=== PATIENT | male | born 1985 | race Caucasian/White ===

== ENCOUNTER 2019-01-23 00:42 | Emergency (ER) | payer MEDICAID ==
[2019-01-23 00:51] VITALS: PULSE 88
[2019-01-23 01:04] VITALS: BP 137/87; RESP 16; TEMP 98.1; O2SAT 96
--- NOTE | 2019-01-23 01:32 | C.PDOC ---
History Of Present Illness 33 year old male presents stating his seasonal allergies have been bad recently these past few days with nasal congestion, runny nose, and scratchy throat. He has been drinking some syrup that he usually takes for it with no relief, he does not know the name of the syrup. Denies fever or other complaints. Time Seen by Provider: 01/23/19 01:06 Chief Complaint (Nursing): ENT Problem History Per: Patient History/Exam Limitations: None Onset/Duration Of Symptoms: Days Current Symptoms Are (Timing): Still Present Past Medical History Reviewed: Historical Data, Nursing Documentation, Vital Signs Vital Signs: Last Vital Signs Temp 98.1 F 01/23/19 01:03 Pulse 88 01/23/19 01:03 Resp 16 01/23/19 01:03 BP 137/87 01/23/19 01:03 Pulse Ox 96 01/23/19 01:03 Primary Care Provider: FAMILY PROVIDER,NO Family History: States: Unknown Family Hx - Social History Hx Alcohol Use: No Hx Substance Use: No Review Of Systems Constitutional: Negative for: Fever, Chills ENT: Positive for: Nose Discharge, Nose Congestion, Other (Scratchy throat) Respiratory: Negative for: Cough Gastrointestinal: Negative for: Nausea, Vomiting Skin: Negative for: Rash Physical Exam - Physical Exam Appears: Non-toxic Skin: Normal Color, Warm, No Rash Head: Atraumatic, Normacephalic Eye(s): bilateral: Normal Inspection Ear(s): Bilateral: Normal Nose: Other (Enlarged nasal turbinates with clear discharge) Oral Mucosa: Moist Throat: Normal (No swelling or injection), No Exudate, Other (Airway patent) Neck: Normal ROM, Supple Respiratory: Normal Breath Sounds, No Accessory Muscle Use, Other (Normal inspiratory effort) Neurological/Psych: Oriented x3, Normal Speech ED Course And Treatment O2 Sat by Pulse Oximetry: 96 (Room air) Pulse Ox Interpretation: Normal Medical Decision Making Medical Decision Making: Patient started on zyrtec-d and medrol pack, stable for dc to follow up with primary. 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 - Scribe Statement The provider has reviewed the documentation as recorded by the Scribe [place] Blue All medical record entries made by the Scribe were at my direction and personally dictated by me. I have reviewed the chart and agree that the record accurately reflects my personal performance of the history, physical exam, medical decision making, and the department course for this patient. I have also personally directed, reviewed, and agree with the discharge instructions and disposition.
== END 2019-01-23 01:47 | disposition home or self-care (01) ==
LOC: C.ER 00:42
DX: J30.9 Allergic rhinitis, unspecified (principal)